=== PATIENT | female | born 1955 | race Hispanic/Latino ===

== ENCOUNTER 2019-03-31 08:55 | Day surgery (SDC) | payer OTHER ==
[2019-03-28 16:10] VITALS: BP 114/50
[2019-03-28 16:21] VITALS: BP 114/50
[2019-03-28 16:31] LABS: CREATININE 0.7 mg/dL (0.5-1.5); POTASSIUM 3.5 mmol/L (3.5-5.1)
[2019-03-28 16:33] LABS: INR 0.95 (0.85-1.15); PARTIAL THROMBOPLASTIN TIME 30.4 SEC (26.3-35.5)
[2019-03-28 17:35] VITALS: BP 114/50
[~2019-03-31] VITALS: Ht 149.9 cm; Wt 38.6 kg
[2019-03-31] VITALS (7 sets, daily range): BP systolic 119–130; BP diastolic 63–76
[2019-03-31] MEDS ORDERED: SODIUM CHLORIDE 0.9% 1000ML 1,000 ML IV ONE (09:05)
[2019-03-31 09:37] LABS: BASOPHILS % (AUTO) 0.7 % (0.0-5.0); EOSINOPHILS % (AUTO) 1.1 % (0.0-8.0); HEMATOCRIT 33.5 % (36-48); LYMPHOCYTES % (AUTO) 7.6 % (21.0-51.0); MEAN CORPUSCULAR HEMOGLOBIN 26.3 pg (27.0-33.0); MEAN CORPUSCULAR HGB CONC 33.3 g/dL (32.0-36.0); MONOCYTES % (AUTO) 7.2 % (3.0-13.0); NEUTROPHILS % (AUTO) 83.4 % (40.0-77.0); PLATELET COUNT (AUTO) 342 K/uL (130-400); RED BLOOD CELL COUNT(AUTO) 4.24 MIL/uL (4.00-5.50); RED CELL DISTRIBUTION WIDTH 13.1 % (11.0-15.5)
[2019-03-31 10:30] LABS: BASOPHILS % (AUTO) 0.4 % (0.0-5.0); HEMATOCRIT 32.2 % (36-48); LYMPHOCYTES % (AUTO) 6.3 % (21.0-51.0); MEAN CORPUSCULAR HGB CONC 32.7 g/dL (32.0-36.0); MEAN CORPUSCULAR VOLUME 79.4 fL (79-99); MONOCYTES % (AUTO) 7.6 % (3.0-13.0); NEUTROPHILS % (AUTO) 84.7 % (40.0-77.0); PLATELET COUNT (AUTO) 338 K/uL (130-400); RED BLOOD CELL COUNT(AUTO) 4.06 MIL/uL (4.00-5.50); RED CELL DISTRIBUTION WIDTH 13.4 % (11.0-15.5); WHITE BLOOD COUNT (AUTO) 16.1 K/uL (4.8-10.8)
--- NOTE | 2019-03-31 10:35 | NUR ---
LABS DR. GALDAMEZ NOTIFIED OF ELEVATED WBC 16.0, ORDERS RECEIVED TO REPEAT CBC AND CALL HIM WITH RESULTS. REDRAW WAS WBC 16.1 DR. GALDAMEZ NOTIFIED. HE STATED HE WENT BACK TO HIS NOTES AND REVIEWED THAT IS PATIENT'S WBC TREND SHE'S BEEN EVEN HIGHER ,PER DR. GALDAMEZ, PROCEED WITH SCHEDULED PORTACATH PLACEMENT. MARGARITO FROM POSTDOCTORAL FELLOW NOTIFIED TO INFORM DR. DELANEY.
--- NOTE | 2019-03-31 10:50 | NUR ---
PROCEDURE PT TAKEN TO DUMP ATTENDANT FOR SCHEDULED PROCEDURE. FAMILY AT BEDSIDE
[2019-03-31] MEDS ORDERED: LIDOCAINE HCL/EPINEPHRINE 50 ML VIAL IJ ONE (11:11)
[2019-03-31] MEDS ORDERED: SODIUM BICARB 50MEQ 50ML VIAL ONE (11:11)
[2019-03-31] MEDS ORDERED: LIDOCAINE HCL 1% MDV 50ML VIAL ONE (11:11)
[2019-03-31] MEDS ORDERED: MIDAZOLAM HCL 1 MG/ML 2ML VIAL ONE (11:40)
[2019-03-31] MEDS ORDERED: FENTANYL CITRATE PF 50 MCG/1 ML 2ML VIAL ONE (11:40)
[2019-03-31] MEDS ORDERED: OCTYL 2-CYANOACRYLATE 1 EACH TP ONE (12:04)
[2019-03-31] MEDS ORDERED: ACETAMINOPHEN 325 MG TAB PO SCH (12:30)
--- NOTE | 2019-03-31 12:35 | NUR ---
POST RECEIVED PT FROM [employer] READING TEACHER, S/P PORT A CATH PLACEMENT, TO RIGHT CHEST AREA. DRESSING TO SITE DRY AND INTACT, VS STABLE ON ARRIVAL . PLAN OF CARE DISCUSS WITH PATIENT /DAUGHTER, CALL LIGHT WITHIN REACH
--- NOTE | 2019-03-31 14:00 | NUR ---
DC DC INSTRUCTIONS GIVEN TO PT DAUGHTER , INSTRUCTED TO KEEP HER APPOINTMENT WITH DR. GALDAMEZ, TO KEEP DRESSING TO RIGHT CHEST DRY AND INTACT AT ALL TIMES. NO BLEEDING OR HEMATOMA NOTED TO SITE. VS STABLE. PIV REMOVED TO RIGHT ARM, CATHETER INTACT, SITE ASYMTOMATIC, PT WILL GET DRESS AND GO HOME ONCE READY. PT AWAKE AND ALERT , DENIES ANY PAIN OR DISCOMFORTS.
--- NOTE | 2019-03-31 14:25 | NUR ---
DC PT DC HOME VIA WC, NO DISTRESS NOTED. DENIED ANY PAIN OR DISCOMFORTS. SMALL DOT OF BLOOD NOTED TO DRESSING , NO BLEEDING OR HEMATOMA TO SITE. ACCOMPANIED BY DAUGHTER
== END 2019-03-31 14:25 | disposition home or self-care (01) ==
LOC: DAH 08:55
PROVIDERS: ATTEND Internal Medicine Hematology & Oncology
DX: Z45.2 Encounter for adjustment and management of vascular access device (principal); C34.92 Malignant neoplasm of unspecified part of left bronchus or lung; M81.0 Age-related osteoporosis without current pathological fracture; K21.9 Gastro-esophageal reflux disease without esophagitis; E11.40 Type 2 diabetes mellitus with diabetic neuropathy, unspecified; E11.21 Type 2 diabetes mellitus with diabetic nephropathy; I10 Essential (primary) hypertension; F17.210 Nicotine dependence, cigarettes, uncomplicated; Z79.899 Other long term (current) drug therapy; Z98.890 Other specified postprocedural states; Z79.01 Long term (current) use of anticoagulants
CPT/HCPCS: 36415 ×2; 36561; 77001; 80048; 82948; 85025 ×2; 85610; 85730; C1788; C1894; J1644 ×2; J2250; J3010; J3490 ×2; J7030; 99152; 99153; 99156; 99157

== ENCOUNTER 2019-05-27 09:08 | Day surgery (SDC) | payer OTHER ==
[2019-05-27 09:05] VITALS: BP 119/49
[2019-05-27 09:47] LABS: INR 0.92 (0.85-1.15); PARTIAL THROMBOPLASTIN TIME 30.3 SEC (26.3-35.5); PROTHROMBIN TIME 9.7 SEC (9.6-11.6)
[2019-05-27] MEDS ORDERED: LIDOCAINE HCL 1% MDV 50ML VIAL ONE (10:50)
[2019-05-27] MEDS ORDERED: SODIUM BICARB 50MEQ 50ML VIAL ONE (10:52)
[2019-05-27] MEDS ORDERED: SODIUM CHLORIDE 0.9% 1000ML 1,000 ML IV ONE (10:58)
[2019-05-27 12:30] VITALS: BP 122/41
--- NOTE | 2019-05-27 12:30 | NUR ---
Pt back from cath, report received from IVA Mcfarlane, [facility] elevated, pt s any signs of distress. Dressing to right chest remains, dry, clean and intact.
[2019-05-27 12:45] VITALS: BP 117/51
[2019-05-27] MEDS ORDERED: ACETAMINOPHEN 325 MG TAB PO SCH (12:45)
[2019-05-27] MEDS ORDERED: ACETAMINOPHEN EXTRA STRENGTH 500 MG TABLET PO SCH (12:45)
[2019-05-27 13:00] VITALS: BP 127/45
[2019-05-27 13:15] VITALS: BP 124/52
[2019-05-27 13:30] VITALS: BP 122/51
--- NOTE | 2019-05-27 13:49 | NUR ---
Pt discharged home, tolerating fluids well, ate a small amount of food prior to leaving, ambulating well with standy-by assistance. Denies any severe pain, nausea or dizziness. Pt and daughter instructed to return to Dr. Linton's office tomorrow for dressing change. Daughter and pt verbalized understanding. Dressing to right chest remains dry, clean, and intact s any evidence of bleeding.
== END 2019-05-27 13:49 | disposition home or self-care (01) ==
LOC: CLH 09:08 → DAH 09:08 → CLH 13:49
PROVIDERS: ATTEND Internal Medicine Hematology & Oncology
DX: T80.212A Local infection due to central venous catheter, initial encounter (principal); Y82.8 Other medical devices associated with adverse incidents; M81.0 Age-related osteoporosis without current pathological fracture; K21.9 Gastro-esophageal reflux disease without esophagitis; E11.40 Type 2 diabetes mellitus with diabetic neuropathy, unspecified; E11.21 Type 2 diabetes mellitus with diabetic nephropathy; D50.9 Iron deficiency anemia, unspecified; E78.5 Hyperlipidemia, unspecified; I10 Essential (primary) hypertension; Z79.4 Long term (current) use of insulin; Z98.890 Other specified postprocedural states; Z87.891 Personal history of nicotine dependence; Z91.041 Radiographic dye allergy status
CPT/HCPCS: 36415; 36590; 77001; 82948 ×2; 85610; 85730; 87070; 87077; 87186; A4606; A6407; J1644; J3490 ×2; J7030; 36589